=== PATIENT | male | born 1960 | race Caucasian/White ===

== ENCOUNTER → 2016-05-26 | Outpatient (CLI) | payer BC ==
[~2016-05-26] MED LIST: AMLO-110 PO; CIPR-255 PO; DICL50TA3 PO; HYDR-5688 PO; LORA10CA2 PO; LOSA100T26 PO; METR-163 PO; ONDA4TAB10 SL; OXYC-57 PO
== END | disposition home or self-care (01) ==
LOC: C.CPL 08:29
PROVIDERS: ATTEND Surgery
DX: K42.9 Umbilical hernia without obstruction or gangrene (principal); Z01.812 Encounter for preprocedural laboratory examination

== ENCOUNTER → 2016-06-01 | Day surgery (SDC) | payer BC ==
[2016-04-27 13:12] VITALS: Ht 170.2 cm; Wt 96.8 kg
[~2016-06-01] VITALS: Ht 170.2 cm; Wt 96.8 kg
[~2016-06-01] MED LIST changes: +ALBUTEROL HFA INHALER 8.5 GM INH ONE; +ANCEF: ALLERGY NOTED TO ORDERED MEDICATION SCH; +ATROPINE SULFATE 0.1 MG/ML 5ML SYR IV PRN; +BUPIVACAINE 0.5 % 5 MG/1 ML MPF 30ML VIAL ONE; +CEFAZOLIN 2000 MG/60 ML D5W IV SCH; +CIPROFLOXACIN 400MG / 200ML D5W IV STA; +CLINDAMYCIN 900MG IV SCH; +CLINDAMYCIN IV 900 MG in DEXTROSE 5% ADD-VANTAGE 100ML 100 ML IV ONE; +DEXAMETHASONE SOD INJ 4 MG/ML VIAL ONE; +EpHEDrine SULFATE INJ 50 MG/ML AMP IV PRN; +FENTANYL CITRATE INJ 50 MCG/1 ML 2 ML VIAL ONE; +FLUMAZENIL 0.1 MG/1 ML 10 ML VIAL IV PRN; +HYDROCODONE/ACETAMOPHEN 5/325MG TAB PO PRN; +HYDROmorphone INJ 2 MG/ML SYR/VIAL IV PRN; +LABETALOL HCL IV 5 MG/ML 20ML IV PRN; +LACTATED RINGER'S 1000ML 1,000 ML IV SCH; +LIDOCAINE HCL 2% 2 ML VIAL (20MG/ML) ONE; +MEPERIDINE HCL 25 MG/ML CARP IV PRN; +MIDAZOLAM HCL 1 MG/ML 2ML VIAL ONE; +NALOXONE HCL 0.4 MG/1 ML VIAL/CARP IV PRN; +ONDANSETRON INJ 2 MG/ML 2 ML VIAL IV PRN; +ONDANSETRON INJ 2 MG/ML 2 ML VIAL ONE; +PHENYLEPHRINE 100MCG/ML 5ML SYR IV PRN; +PROPOFOL IV EMULSION 10 MG/ML 20 ML VIAL IV ONE; +SODIUM CHLORIDE 0.9% 1000ML 1,000 ML IV SCH; +SUCCINYLCHOLINE CHLORIDE 20 MG/ML 10 ML VIAL IV ONE
--- NOTE | 2016-06-01 07:54 | [facility] Operative Report ---
Operative Report Operative Date Jun 01, 2016. Pre-Operative Diagnosis Umbilical Hernia Post-Operative Diagnosis same Procedure(s) Performed open umb hernia repair Surgeon DR. Juarez Beltre Estimated Blood Loss 5ML Findings 1.5 cm defect Specimens none per surgeon Anesthesia gen Complication(s) None Disposition Recovery Room / PACU I attest to the content of the Intraoperative Record and any orders documented therein. Any exceptions are noted below.
--- NOTE | 2016-06-01 07:57 | Discharge Instructions-SurgCtr ---
Discharge Instructions Visit Reason for Visit: Umbilical Hernia Discharge Discharge Diagnosis / Problem: umbilical hernia Discharge Goals Goal(s): Decrease discomfort, Improve function, Improve disease control Activity Recommendations Activity Limitations: as noted below Exercise/Sports Limitations: until after follow-up appointment May Resume Sexual Activity: when tolerated Driving or Machine Use: resume 3 days after discharge lifting less than 20 lbs may shower Anesthesia . Post Anesthesia Instructions: If you have had General Anesthesia or IV Sedation: * Do not drive today. * Resume driving when surgeon permits. * Do not make important decisions or sign legal documents today. * Call surgeon for: 1. Temperature elevations greater than 101 degrees F. 2. Uncontrollable pain. 3. Excessive bleeding. 4. Persistent nausea and vomiting. 5. Medication intolerance (nausea, vomiting or rash). * For nausea and vomiting use only clear liquids such as: tea, soda, bouillon until nausea subsides, then gradually increase diet as tolerated. * If you have any concerns or questions, call your surgeon's office. If physician is unavailable and it is an emergency, call 911 or go to the nearest emergency room. . Instructions / Follow-Up Instructions / Follow-Up SPECIAL CARE INSTRUCTIONS: * Cover incisions and change daily for comfort/drainage. * Avoid constipation- may use Milk of magnesia and Senokot S twice daily as directed on the package * May use ibuprofen for pain as tolerated. * Expect some swelling and bruising. Call your doctor if: * Temperature above 101 degrees * Pain not relieved by pain medicine ordered * There is increased drainage or redness from any incision * You have any unanswered questions or concerns [phone]. FOLLOW UP VISIT: If not already scheduled, please call the office for a follow-up visit. for next week- some sutures OFFICE PHONE NUMBER: Dr. Villanueva Office Diet Recommendations Home Diet: resume previous diet Procedures Procedures Performed: Open Umbilical Hernia Repair Pending Studies Studies pending at discharge: no Medical Emergencies . Who to Call and When: Medical Emergencies: If at any time you feel your situation is an emergency, please call 911 immediately. . Non-Emergent Contact Non-Emergency issues call your: Surgeon . . "Provider Documentation" section prepared by Juarez Villanueva.
[2016-06-01] MEDS: FENTANYL CITRATE INJ 50 MCG/1 ML 2 ML VIAL IV PRN ×2 (08:17→08:22)
--- NOTE | 2016-06-01 08:35 | OPERATIVE REPORT ---
DATE OF OPERATION: 06/01/2016 NAME OF OPERATION: Open umbilical hernia repair. PREOPERATIVE DIAGNOSIS: Umbilical hernia. POSTOPERATIVE DIAGNOSIS: Same. STAFF SURGEON: Dr. Juarez Villanueva. ANESTHESIA: General. FINDINGS: The patient had a 1.5-cm umbilical hernia defect. DESCRIPTION OF PROCEDURE: The patient was brought into the operating room and placed on the operating table in the supine position. His abdomen was prepped and draped in the usual fashion. 0.5% plain Marcaine was used to anesthetize the umbilicus. An incision was made in the lower part of the umbilicus, carrying dissection down and entering the hernia sac, which contained preperitoneal adipose tissue. This was reduced. The umbilicus was dissected away from the fascia and then, the fascial defect which was approximately 1.5 cm in diameter was closed using interrupted 0 Ethibond suture. Subcutaneous tissue was reapproximated using 2-0 plain catgut suture and the umbilicus was reattached to the fascia using 2-0 chromic catgut suture. Skin was reapproximated using 5-0 Prolene suture. The patient was transferred to recovery room in stable condition. I attest to the content of the Intraoperative Record and any orders documented therein. Any exceptio ns are noted below.
[2016-06-01 08:40] VITALS: TEMP 37
--- NOTE | 2016-06-01 08:51 | Anesthesia Progress Nt - [facility] ---
Anesthesia Post Op Note Date & Time Jun 01, 2016 at 08:51 Vital Signs Pain Intensity: 2 Vital Signs Past 12 Hours Date Time Temp Pulse Resp B/P Pulse Ox O2 Delivery O2 Flow Rate FiO2 06/01/16 08:35 37.0 06/01/16 08:34 70 16 130/95 94 06/01/16 08:33 72 19 84 06/01/16 08:33 70 17 94 06/01/16 08:28 140/77 06/01/16 08:23 75 24 136/75 91 06/01/16 08:23 74 24 06/01/16 08:18 74 14 114/81 97 06/01/16 08:18 74 14 91 06/01/16 08:14 122/74 06/01/16 08:08 79 18 136/88 98 06/01/16 08:08 80 18 06/01/16 08:04 117/75 06/01/16 08:03 82 16 98 06/01/16 08:03 83 15 97 06/01/16 07:59 128/77 06/01/16 07:58 36.6 81 16 139/85 97 Diffusion Mask 8 06/01/16 06:42 36.4 60 16 139/90 95 Room Air Notes Mental Status: alert / awake / arousable, participated in evaluation Pt Amnestic to Procedure: Yes Nausea / Vomiting: adequately controlled Pain: adequately controlled Airway Patency, RR, SpO2: stable & adequate BP & HR: stable & adequate Hydration State: stable & adequate Anesthetic Complications: no major complications apparent
[2016-06-01 09:17] VITALS: BP 152/94; PULSE 54; O2SAT 95
== END | disposition home or self-care (01) ==
LOC: X.SURG 06:24
PROVIDERS: ATTEND Surgery
DX: K42.9 Umbilical hernia without obstruction or gangrene (principal); F17.200 Nicotine dependence, unspecified, uncomplicated; M19.90 Unspecified osteoarthritis, unspecified site; E66.9 Obesity, unspecified; Z68.33 Body mass index [BMI] 33.0-33.9, adult; G47.33 Obstructive sleep apnea (adult) (pediatric); Z88.0 Allergy status to penicillin; Z88.1 Allergy status to other antibiotic agents; Z98.890 Other specified postprocedural states

== ENCOUNTER 2016-11-23 07:41 | Emergency (ER) | payer BC, OTHER ==
[~2016-11-23] VITALS: Ht 171.5 cm; Wt 95.4 kg
[~2016-11-23 07:41] MED LIST changes: -ALBUTEROL HFA INHALER 8.5 GM INH ONE; -ANCEF: ALLERGY NOTED TO ORDERED MEDICATION SCH; -ATROPINE SULFATE 0.1 MG/ML 5ML SYR IV PRN; -BUPIVACAINE 0.5 % 5 MG/1 ML MPF 30ML VIAL ONE; -CEFAZOLIN 2000 MG/60 ML D5W IV SCH; -CIPR-255 PO; -CIPROFLOXACIN 400MG / 200ML D5W IV STA; -CLINDAMYCIN 900MG IV SCH; -CLINDAMYCIN IV 900 MG in DEXTROSE 5% ADD-VANTAGE 100ML 100 ML IV ONE; -DEXAMETHASONE SOD INJ 4 MG/ML VIAL ONE; -EpHEDrine SULFATE INJ 50 MG/ML AMP IV PRN; -FENTANYL CITRATE INJ 50 MCG/1 ML 2 ML VIAL ONE; -FLUMAZENIL 0.1 MG/1 ML 10 ML VIAL IV PRN; -HYDROCODONE/ACETAMOPHEN 5/325MG TAB PO PRN; -HYDROmorphone INJ 2 MG/ML SYR/VIAL IV PRN; -LABETALOL HCL IV 5 MG/ML 20ML IV PRN; -LACTATED RINGER'S 1000ML 1,000 ML IV SCH; -LIDOCAINE HCL 2% 2 ML VIAL (20MG/ML) ONE; -MEPERIDINE HCL 25 MG/ML CARP IV PRN; -METR-163 PO; -MIDAZOLAM HCL 1 MG/ML 2ML VIAL ONE; -NALOXONE HCL 0.4 MG/1 ML VIAL/CARP IV PRN; -ONDA4TAB10 SL; -ONDANSETRON INJ 2 MG/ML 2 ML VIAL IV PRN; -ONDANSETRON INJ 2 MG/ML 2 ML VIAL ONE; -OXYC-57 PO; -PHENYLEPHRINE 100MCG/ML 5ML SYR IV PRN; -PROPOFOL IV EMULSION 10 MG/ML 20 ML VIAL IV ONE; -SODIUM CHLORIDE 0.9% 1000ML 1,000 ML IV SCH; -SUCCINYLCHOLINE CHLORIDE 20 MG/ML 10 ML VIAL IV ONE
[2016-11-23 07:47] VITALS: TEMP 36.7; Ht 171.5 cm; Wt 95.4 kg
[2016-11-23 08:28] LABS: BASO % 0.1 %; BASO ABS # 0.02 K/uL (0-0.2); COMPLETE YES; EOS % 0.5 %; HEMATOCRIT 47.4 % (42-52); IG% 0.4 %; LYMPH % 10.7 %; LYMPH ABS # 2.04 K/uL (1.2-3.4); MEAN CELL VOLUME 90.8 fL (80-100); MEAN CORPUSCULAR HGB CONC 35.2 g/dl (32-36); MEAN PLATELET VOLUME 11.7 fL (7.4-10.4); MONO % 9.3 %; PLATELET COUNT 217 K/uL (130-400); RED BLOOD COUNT 5.22 M/uL (4.7-6.1); WHITE BLOOD COUNT 19.12 K/uL (4.8-10.8)
--- NOTE | 2016-11-23 08:31 | EMERGENCY ROOM VISIT NOTE ---
History Report prepared by Jennifer: Deyanira Urbina Under the Supervision of: Dr. Leonardo Vernon M.D. First contact with patient: 07:59 Chief Complaint: FEVER Stated Complaint: FEVER 99-100.6, SEVERE BLADDER PAIN History of Present Illness The patient is a 56 year old male who presents to the Emergency Room with complaints of a persistent low-grade fever that started 3 days ago. The patient states that he is also experiencing intermittent supraumbilical abdominal pain that started 3 days ago also. The patient has never experienced this type of abdominal pain in the past. He states that when the pain is there, it feels like someone "kicked him in the nuts." The patient states that he played golf 4 days ago, but he does not think that he pulled anything while playing. He also denies doing anything strenuous lately. The patient adds that his sister is a PA -C and she evaluated him yesterday. She did not do a urine culture. The patient states that she just palpated his abdomen to make sure he didn't have appendicitis. The patient denies pain or burning with urination. He also denies increased urinary frequency and states that, if anything, he is experiencing decreased urinary frequency. The patient states that he has not been eating or drinking much over the last few days and that he has been sleeping more than usual. The patient states that he has slept most of the day for the past 3 days. Source of History: patient Onset: 3 days ago Position: other (global) Quality: other (low-grade fever) Timing: other (persistent) Associated Symptoms: + abdominal pain (intermittent, supraumbilical), + fatigue, No urinary symptoms (pain or burning with urination, increased frequencdy) Review of Systems All systems have been listed, reviewed, and are negative other than those previously mentioned. Please see Additional Medical History Sheet. Past Medical & Surgical Medical Problems: (1) Hypertension Family History Cerebrovascular accident (CVA) Heart disease Hypertension Social History Smoking Status: Current Every Day Smoker Marital Status: Housing Status: lives with family Current/Historical Medications Scheduled Amlodipine (Norvasc), 5 MG PO QAM Ciprofloxacin Hcl (Cipro), 1 TAB PO BID Hctz/Losartan (Hyzaar 12.5MG/100MG), 1 TAB PO QAM Loratadine (Claritin), 10 MG PO QAM Metronidazole (Flagyl), 500 MG PO TID Ondasetron Odt (Zofran Odt), 4 MG SL Q4 Scheduled PRN Diclofenac (Voltaren), 50 MG PO BID PRN for Pain Hydrocodone/Acetaminophen 5MG/325MG ([place] 5MG/325MG), 1-2 TABLET PO q 6 hrs PRN for Pain Oxycodone/Acetaminophen 5MG/325MG (Percocet 5MG/325MG), 1-2 TABLETS PO Q4H PRN for Pain Allergies Coded Allergies: Amoxicillin (Verified Allergy, Unknown, HIVES, 11/23/16) Tetracycline (Verified Allergy, Unknown, HIVES, 11/23/16) Physical Exam Vital Signs Date Time Temp Pulse Resp B/P (MAP) Pulse Ox O2 Delivery O2 Flow Rate FiO2 11/23/16 11:22 96 16 146/97 98 Room Air 11/23/16 09:46 86 18 131/75 95 Room Air 11/23/16 07:47 36.7 88 16 134/83 93 Room Air Physical Exam GENERAL: Patient awake, alert, oriented x 3. Patient follows commands. Patient does not appear toxic. Patient is adequately hydrated and well- nourished. SKIN: No erythema, pallor, cyanosis or rash HEENT: Normal head, pupils equal, reactive to light and accommodation. LUNGS: Clear to auscultation. No wheezes, no rales, no rhonchi. HEART: No murmurs. No gallops. No rubs ABDOMEN: Supraumbilical tenderness. No masses, no erythema, no hernias palpated , no rebound, no hepatomegaly or splenomegaly. EXTREMITIES: No signs of trauma or infection. NEUROLOGIC: Cranial nerves II-XII within normal limits. No gross motor sensory function deficits. Medical Decision & Procedures ER Provider Diagnostic Interpretation: CT results are interpretations by the radiologist and per my review. CT SCAN OF THE ABDOMEN AND PELVIS WITHOUT IV CONTRAST FINDINGS: Lung bases: The heart is normal in size and without pericardial effusion. The lung bases are clear noting dependent atelectasis. Liver: The unenhanced liver is top normal in size measuring 17.5 cm. The liver demonstrates diffusely diminished attenuation consistent with hepatic steatosis. Fatty sparing is seen adjacent to gallbladder fossa. There is no intrahepatic biliary ductal dilatation. Gallbladder: Unremarkable. Spleen: Normal in size and attenuation. Pancreas: Unremarkable. Adrenal glands: Unremarkable. Kidneys: The unenhanced kidneys are normal in size and without hydronephrosis. There are no renal calculi identified. There is no evidence of contour deforming renal mass lesion. Abdominal vasculature: The abdominal aorta is normal in course and caliber noting moderate atherosclerotic calcification. Bowel: The small bowel and colon are normal in course and caliber. There is moderate diverticulosis of left colon. There is significant wall thickening and edema involving the sigmoid colon with surrounding inflammatory stranding and trace fluid. The appearance is consistent with acute diverticulitis. No evidence of abscess is seen on this unenhanced examination. The appendix is well-visualized and normal. Peritoneum: There is no intraperitoneal free. Trace free fluid in the left paracolic gutter and pelvis is noted. There is a small fat-containing umbilical hernia. Lymphadenopathy: None. Pelvic viscera: The bladder, prostate, and seminal vesicles are normal as visualized. Surgical clips are noted along the spermatic cord. Skeletal structures: No lytic or blastic lesions are seen. There is mild lumbosacral spondylosis. There are bilateral pars defects at L5. No anterolisthesis is seen at L5-S1. IMPRESSION: 1. Findings are consistent with severe acute diverticulitis of the sigmoid colon. No intraperitoneal free air is seen and there is no evidence of abscess on this unenhanced examination. 2. Hepatic steatosis. 3. Additional findings as above. Electronically signed by: Nolan Naqvi M.D. 11/23/2016 10:05 AM Dictated Date/Time: 11/23/2016 9:59 AM Laboratory Results 11/23/16 08:15 Red Blood Count 5.22, Mean Corpuscular Volume 90.8, Mean Corpuscular Hemoglobin 32.0, Mean Corpuscular Hemoglobin Concent 35.2, Mean Platelet Volume 11.7, Neutrophils (%) (Auto) 79.0, Lymphocytes (%) (Auto) 10.7, Monocytes (%) (Auto) 9.3, Eosinophils (%) (Auto) 0.5, Basophils (%) (Auto) 0.1, Neutrophils # (Auto) 15.10, Lymphocytes # (Auto) 2.04, Monocytes # (Auto) 1.78, Eosinophils # (Auto) 0.10, Basophils # (Auto) 0.02 11/23/16 08:15 Test 11/23/16 08:15 White Blood Count 19.12 K/uL (4.8-10.8) Red Blood Count 5.22 M/uL (4.7-6.1) Hemoglobin 16.7 g/dL (14.0-18.0) Hematocrit 47.4 % (42-52) Mean Corpuscular Volume 90.8 fL (80-100) Mean Corpuscular Hemoglobin 32.0 pg (25-34) Mean Corpuscular Hemoglobin Concent 35.2 g/dl (32-36) Platelet Count 217 K/uL (130-400) Mean Platelet Volume 11.7 fL (7.4-10.4) Neutrophils (%) (Auto) 79.0 % Lymphocytes (%) (Auto) 10.7 % Monocytes (%) (Auto) 9.3 % Eosinophils (%) (Auto) 0.5 % Basophils (%) (Auto) 0.1 % Neutrophils # (Auto) 15.10 K/uL (1.4-6.5) Lymphocytes # (Auto) 2.04 K/uL (1.2-3.4) Monocytes # (Auto) 1.78 K/uL (0.11-0.59) Eosinophils # (Auto) 0.10 K/uL (0-0.5) Basophils # (Auto) 0.02 K/uL (0-0.2) RDW Standard Deviation 44.2 fL (36.4-46.3) RDW Coefficient of Variation 13.3 % (11.5-14.5) Immature Granulocyte % (Auto) 0.4 % Immature Granulocyte # (Auto) 0.08 K/uL (0.00-0.02) Urine Color HATTIE Urine Appearance CLEAR (CLEAR) Urine pH 5.5 (4.5-7.5) Urine Specific [place] 1.022 (1.000-1.030) Urine Protein 3+ (NEG) Urine Glucose (UA) NEG (NEG) Urine Ketones 3+ (NEG) Urine Occult Blood 2+ (NEG) Urine Nitrite NEG (NEG) Urine Bilirubin NEG (NEG) Urine Urobilinogen NEG (NEG) Urine Leukocyte Esterase NEG (NEG) Urine WBC (Auto) 1-5 /hpf (0-5) Urine RBC (Auto) 0-4 /hpf (0-4) Urine Hyaline Casts (Auto) 10-30 /lpf (0-5) Urine Epithelial Cells (Auto) 20-30 /lpf (0-5) Urine Bacteria (Auto) NEG (NEG) Anion Gap 8.0 mmol/L (3-11) Est Creatinine Clear Calc Drug Dose 100.7 ml/min Estimated GFR () 108.8 Estimated GFR (Non- 93.9 BUN/Creatinine Ratio 10.3 (10-20) Calcium Level 9.8 mg/dl (8.5-10.1) Total Bilirubin 1.4 mg/dl (0.2-1) Aspartate Amino Transf (AST/SGOT) 11 U/L (15-37) Alanine Aminotransferase (ALT/SGPT) 22 U/L (12-78) Alkaline Phosphatase 67 U/L (45-117) Total Protein 8.0 gm/dl (6.4-8.2) Albumin 3.7 gm/dl (3.4-5.0) Globulin 4.3 gm/dl (2.5-4.0) Albumin/Globulin Ratio 0.9 (0.9-2) Laboratory results as stated above per my review. Medications Administered Medications (Trade) Dose Ordered Sig/Jayna Route Start Time Stop Time Status Last Admin Dose Admin Sodium Chloride 2,000 ml @ 999 mls/hr Q2H1M ONCE IV 11/23/16 09:15 11/23/16 11:15 DC 11/23/16 09:15 999 MLS/HR Metronidazole (Flagyl Tab) 500 mg NOW STAT PO 11/23/16 10:17 11/23/16 10:25 DC 11/23/16 10:48 500 MG Ciprofloxacin (Cipro Tab) 500 mg NOW STAT PO 11/23/16 10:17 11/23/16 10:25 DC 11/23/16 10:48 500 MG ED Course 0759: Past medical records reviewed. The patient was evaluated in room B4. A complete history and physical examination was performed. 0915: Ordered Sodium Chloride 2000 ml @ 999 mls/hr IV 1017: Ordered Cipro Tab 500 mg PO, Flagyl Tab 500 mg PO 1129: Upon reevaluation, the patient appeared to have improvement of his symptoms. I discussed today's findings with him. He verbalized agreement of the treatment plan. He was discharged home. Medical Decision Nurses notes reviewed. Medical history sheet reviewed. Differential diagnosis includes but is not limited to: urinary tract infection, kidney stone, hernia, viral infection. Multiple labs and imaging were obtained. The patient has acute sigmoid diverticulitis. White count is significantly elevated. Patient is in moderate pain. The patient does not want to be admitted. I think he can safely be discharged. The patient was planning on going to [facility] today but I do not think that is a good idea. The patient was started on Flagyl and Cipro today was encouraged to follow-up with his family physician. Patient was also given pain medication. Medication Reconciliation: I attest that I have personally reviewed the patient' s current medication list. Blood Pressure Screening: Patient was found to have a slightly elevated blood pressure due to circumstances. I do not believe that the patient requires hypertension monitoring. [place] Drug Monitoring Program Search Results: patient reviewed within database, no issues identified Impression Primary Impression: Acute diverticulitis Scribe Attestation The scribe's documentation has been prepared under my direction and personally reviewed by me in its entirety. I confirm that the note above accurately reflects all work, treatment, procedures, and medical decision making performed by me. Departure Information Dispostion Home / Self-Care Prescriptions Oxycodone/Acetaminophen 5MG/325MG (PERCOCET 5MG/325MG) Tab 1-2 TABLETS PO Q4H Y for Pain, #20 TAB Prov: Leonardo Vernon M.D. 11/23/16 Ondasetron Odt (ZOFRAN ODT) 4 Mg Tab 4 MG SL Q4 for Nausea, #10 TAB Prov: Leonardo Vernon M.D. 11/23/16 Metronidazole (Flagyl) 500 Mg Tab 500 MG PO TID for 10 Days, #30 TAB Prov: Leonardo Vernon M.D. 11/23/16 Ciprofloxacin Hcl (CIPRO) 500 Mg Tab 1 TAB PO BID for 10 Days, #20 TAB Prov: Leonardo Vernon M.D. 11/23/16 Referrals Devaughn Ochoa M.D. (PCP) Forms HOME CARE DOCUMENTATION FORM, IMPORTANT VISIT INFORMATION Patient Instructions ED Diverticulitis, My [facility] Additional Instructions One Cipro twice a day. 1 Flagyl 3 times a day. 1-2 Percocet every 4 hours as needed for moderate to severe pain. Do not drive or operate machinery while taking Percocet. 1 Zofran every 4 hours as needed for nausea. Follow-up with your family physician within the next 7 days. Return here sooner if you're having more pain or if you are unable to hold down liquids. No alcohol or alcohol-containing products while on Flagyl. Drink extra fluids.
[2016-11-23 08:34] LABS: URINE APPEARANCE CLEAR (CLEAR); URINE EPITHELIAL CELL AUTO 20-30 /lpf (0-5); URINE NITRITE NEG (NEG); URINE PH 5.5 (4.5-7.5); URINE SPECIFIC GRAVITY 1.022 (1.000-1.030); UROBILINOGEN NEG (NEG); ZZUR CULT IF INDIC CLEAN CATCH NO
[2016-11-23 08:40] LABS: MANUAL MICROSCOPIC REQUIRED? NO; REVIEW REQ? NO; URINE COLOR AMBER
[2016-11-23 08:41] LABS: URINE BILIRUBIN NEG (NEG)
[2016-11-23 08:48] LABS: BUN/CREATININE RATIO 10.3 (10-20); CALCIUM 9.8 mg/dl (8.5-10.1); CREATININE 0.91 mg/dl (0.60-1.40)
[2016-11-23 08:51] LABS: ALB/GLOB RATIO 0.9 (0.9-2)
[2016-11-23] MEDS ORDERED: SODIUM CHLORIDE 0.9% 1000ML 2,000 ML IV ONE (09:15)
--- NOTE | 2016-11-23 10:06 | DIAGNOSTIC IMAGING REPORT ---
CT SCAN OF THE ABDOMEN AND PELVIS WITHOUT IV CONTRAST CLINICAL HISTORY: Suprapubic pelvic pain. Fever. COMPARISON STUDY: Abdominal ultrasound dated 06/14/2006. TECHNIQUE: CT scan of the abdomen and pelvis is performed from the lung bases to the proximal femora. Images are reviewed in the axial, sagittal, and coronal planes. IV contrast was not administered for this examination. Note that the examination is suboptimal without IV contrast. Automated dose control exposure was utilized. CT DOSE: 840.33 mGy.cm FINDINGS: Lung bases: The heart is normal in size and without pericardial effusion. The lung bases are clear noting dependent atelectasis. Liver: The unenhanced liver is top normal in size measuring 17.5 cm. The liver demonstrates diffusely diminished attenuation consistent with hepatic steatosis. Fatty sparing is seen adjacent to gallbladder fossa. There is no intrahepatic biliary ductal dilatation. Gallbladder: Unremarkable. Spleen: Normal in size and attenuation. Pancreas: Unremarkable. Adrenal glands: Unremarkable. Kidneys: The unenhanced kidneys are normal in size and without hydronephrosis. There are no renal calculi identified. There is no evidence of contour deforming renal mass lesion. Abdominal vasculature: The abdominal aorta is normal in course and caliber noting moderate atherosclerotic calcification. Bowel: The small bowel and colon are normal in course and caliber. There is moderate diverticulosis of left colon. There is significant wall thickening and edema involving the sigmoid colon with surrounding inflammatory stranding and trace fluid. The appearance is consistent with acute diverticulitis. No evidence of abscess is seen on this unenhanced examination. The appendix is well-visualized and normal. Peritoneum: There is no intraperitoneal free. Trace free fluid in the left paracolic gutter and pelvis is noted. There is a small fat-containing umbilical hernia. Lymphadenopathy: None. Pelvic viscera: The bladder, prostate, and seminal vesicles are normal as visualized. Surgical clips are noted along the spermatic cord. Skeletal structures: No lytic or blastic lesions are seen. There is mild lumbosacral spondylosis. There are bilateral pars defects at L5. No anterolisthesis is seen at L5-S1. IMPRESSION: 1. Findings are consistent with severe acute diverticulitis of the sigmoid colon. No intraperitoneal free air is seen and there is no evidence of abscess on this unenhanced examination. 2. Hepatic steatosis. 3. Additional findings as above. Electronically signed by: Nolan Naqvi M.D. 11/23/2016 10:05 AM Dictated Date/Time: 11/23/2016 9:59 AM
[2016-11-23] MEDS ORDERED: METRONIDAZOLE 250 MG TAB PO STA (10:17)
[2016-11-23] MEDS ORDERED: CIPROFLOXACIN 500 MG TAB PO STA (10:17)
[2016-11-23 11:22] VITALS: BP 146/97; PULSE 96; O2SAT 98
[2016-11-23] MEDS ORDERED: OXYC-57 PO (11:26)
[2016-11-23] MEDS ORDERED: ONDA4TAB10 SL (11:26)
[2016-11-23] MEDS ORDERED: CIPR-255 PO (11:26)
[2016-11-23] MEDS ORDERED: METR-163 PO (11:26)
== END 2016-11-23 11:37 | disposition home or self-care (01) ==
LOC: C.EDB 07:42
DX: K57.30 Diverticulosis of large intestine without perforation or abscess without bleeding (principal); R50.9 Fever, unspecified; R53.83 Other fatigue; I10 Essential (primary) hypertension; Z79.899 Other long term (current) drug therapy; Z82.3 Family history of stroke; Z82.49 Family history of ischemic heart disease and other diseases of the circulatory system; F17.200 Nicotine dependence, unspecified, uncomplicated

== ENCOUNTER → 2016-11-24 | Outpatient (CLI) | payer BC ==
[~2016-11-24] MED LIST changes: +CIPR-255 PO; +METR-163 PO; +ONDA4TAB10 SL; +OXYC-57 PO
[2016-11-24 18:16] LABS: BASO % 0.2 %; BASO ABS # 0.03 K/uL (0-0.2); COMPLETE YES; EOS % 2.5 %; HEMATOCRIT 39.8 % (42-52); IG% 0.3 %; LYMPH % 13.3 %; LYMPH ABS # 1.66 K/uL (1.2-3.4); MEAN CELL VOLUME 89.2 fL (80-100); MEAN CORPUSCULAR HEMOGLOBIN 31.2 pg (25-34); MEAN CORPUSCULAR HGB CONC 34.9 g/dl (32-36); MEAN PLATELET VOLUME 11.4 fL (7.4-10.4); MONO % 10.7 %; PLATELET COUNT 195 K/uL (130-400); RED BLOOD COUNT 4.46 M/uL (4.7-6.1); WHITE BLOOD COUNT 12.46 K/uL (4.8-10.8)
== END | disposition home or self-care (01) ==
LOC: C.LAB 17:27
PROVIDERS: ATTEND Physician Assistant Medical
DX: K57.92 Diverticulitis of intestine, part unspecified, without perforation or abscess without bleeding (principal)